=== PATIENT | male | born 1965 | race Caucasian/White ===

== ENCOUNTER 2023-12-05 08:57 | Day surgery (SDC) | payer OTHER ==
[2023-11-14 11:14] VITALS: BMI 22.0
[2023-12-05] MEDS ORDERED: PROPOFOL 60 ML ONE (09:11)
[2023-12-05 09:22] VITALS: RESP 18
[2023-12-05 10:57] VITALS: PULSE 67; TEMP 97
[2023-12-05 11:49] VITALS: BP 106/70
== END 2023-12-05 11:45 | disposition home or self-care (01) ==
LOC: FASU-ENDO 08:57
PROVIDERS: ATTEND Internal Medicine Gastroenterology
PROC: 0DBN8ZX Excision of Sigmoid Colon, Via Natural or Artificial Opening Endoscopic, Diagnostic (ICD-10-PCS; principal; 2023-12-05 10:33)
DX: Z12.11 Encounter for screening for malignant neoplasm of colon (principal); D12.5 Benign neoplasm of sigmoid colon; K64.1 Second degree hemorrhoids
CPT/HCPCS: 88305-TC